=== PATIENT | female | born 2000 | race Caucasian/White ===

== ENCOUNTER 2024-04-06 11:19 | Emergency (ER) | payer BC, OTHER ==
[~2024-04-06] VITALS: Ht 165.1 cm; Wt 63.5 kg
[2024-04-06] MEDS ORDERED: LORAZEPAM 2 MG/1 ML VIAL ONE (11:30)
[2024-04-06] MEDS: LORAZEPAM 2 MG/1 ML VIAL IM ONE (11:36)
[2024-04-06 11:46] LABS: BASOPHILS % (AUTO) 0.5 % (0.0-2.0); CALCIUM 9.2 mg/dL (8.5-10.1); CARBON DIOXIDE 15 mmol/L (21-32); CHLORIDE 102 mmol/L (98-107); CREATININE 0.9 mg/dL (0.6-1.3); EOSINOPHILS # (AUTO) 0.1 K/uL (0.0-0.7); EOSINOPHILS % (AUTO) 1.4 % (0.0-7.0); GLUCOSE 110 mg/dL (74-106); HEMATOCRIT 35.5 % (31.2-41.9); HEMOGLOBIN 11.4 g/dL (10.9-14.3); LYMPHOCYTES # (AUTO) 4.6 K/uL (0.8-4.8); LYMPHOCYTES % (AUTO) 59.5 % (20.5-51.5); MEAN CORPUSCULAR HEMOGLOBIN 27.7 uug (24.7-32.8); MEAN CORPUSCULAR HGB CONC 32 g/dL (32.3-35.6); MEAN CORPUSCULAR VOLUME 86.3 fL (75.5-95.3); MONOCYTES # (AUTO) 0.8 K/uL (0.1-1.30); NEUTROPHILS # (AUTO) 2.2 K/uL (1.8-8.9); NEUTROPHILS % (AUTO) 28.6 % (38.5-71.5); PLATELET COUNT (AUTO) 222 K/uL (179-408); POTASSIUM 3.9 mmol/L (3.5-5.1); RED BLOOD CELL COUNT(AUTO) 4.11 MIL/uL (3.63-4.92); RED CELL DISTRIBUTION WIDTH 16.9 % (12.3-17.7); SODIUM SERUM 139 mmol/L (136-145); UREA NITROGEN, BLOOD 5 mg/dL (7-18); WHITE BLOOD COUNT (AUTO) 7.8 K/uL (3.8-11.8)
[2024-04-06 11:51] LABS: ALANINE AMINOTRANSFERASE 221 U/L (14-59); ALBUMIN 3.5 g/dL (3.4-5.0); ALKALINE PHOSPHATASE 136 U/L (50-136); ASPARTATE AMINOTRANSFERASE 106 U/L (15-37); BILIRUBIN,DIRECT 0.1 mg/dL (0.0-0.2); BILIRUBIN,TOTAL 0.2 mg/dL (0.2-1.0); ETHANOL < 3 MG/DL (0-10); TOTAL PROTEIN, SERUM 7.4 g/dL (6.4-8.2)
[2024-04-06 11:54] LABS: DIFFERENTIAL COMMENT 1
[2024-04-06 12:45] LABS: IRON, SERUM 68 ug/dL (50-175)
[2024-04-06 15:35] LABS: *BILIRUBIN,URIN NEGATIVE (NEGATIVE); *BLOOD, URINE NEGATIVE (NEGATIVE); *CLARITY,URINE CLEAR (CLEAR); *COLOR,URINE YELLOW (YELLOW); *KETONES,URINE NEGATIVE (NEGATIVE); *PROTEIN,URINE NEGATIVE (NEGATIVE); *UROBILINOGEN,URINE 0.2 E.U./dl (NORMAL); LEUKOCYTE ESTERASE ,URINE NEGATIVE (NEGATIVE); NITRITE, URINE NEGATIVE (NEGATIVE); UGLUCOSE NEGATIVE (NEGATIVE)
[2024-04-06 15:52] LABS: *AMPHETAMINE, URINE NEGATIVE (NEGATIVE); *BARBITURATE, URINE NEGATIVE (NEGATIVE); *BENZODIAZEPINE, URINE POSITIVE (NEGATIVE); *CANNABINOID, URINE NEGATIVE (NEGATIVE); *COCCAINE, URINE NEGATIVE (NEGATIVE); *OPIATE, URINE NEGATIVE (NEGATIVE); *PHENCYCLIDINE SCREEN,URINE NEGATIVE (NEGATIVE)
[2024-04-06 16:34] VITALS: BP 135/80; TEMP 98.2; O2SAT 98
[2024-04-06 16:35] LABS: FENTANYL, URINE NEGATIVE (NEGATIVE)
[2024-04-06 17:37] LABS: BASOPHILS % (MANUAL) 0 % (0-2); EOSINOPHILS % (MANUAL) 1 % (0-8); LYMPHOCYTES % (MANUAL) 60 % (20-40); MONOCYTES % (MANUAL) 9 % (2-10); NEUTROPHILS % (MANUAL) 30 % (42-75)
== END 2024-04-06 16:30 | disposition home or self-care (01) ==
LOC: ER 11:19
DX: R00.0 Tachycardia, unspecified (principal); R06.4 Hyperventilation
CPT/HCPCS: 80076; 80048; 81003; 83550; 83735; 85007; 85025; 85379; 85651; 36415; 93005 ×2; 99284; 96372; 83605; 80320; 80307; J2060; J7040; 70030-TC; A4606; A4663; C1758; G0480

== ENCOUNTER 2024-04-20 12:18 | Emergency (ER) | payer BC ==
[~2024-04-20] VITALS: Ht 170.2 cm; Wt 65.8 kg
--- NOTE | 2024-04-20 12:20 | NUR ---
[facility]AN and staff member from her sober living facility, pt to ER [facility] via [facility]. Per report pt had a witnessed seizure lasting about one minute, pt states she has history of seizures, has Keppra prescribed for her but she does not take it.
[2024-04-20 12:48] LABS: BASOPHILS % (AUTO) 0.4 % (0.0-2.0); EOSINOPHILS # (AUTO) 0.1 K/uL (0.0-0.7); EOSINOPHILS % (AUTO) 1.9 % (0.0-7.0); HEMOGLOBIN 11.9 g/dL (10.9-14.3); LYMPHOCYTES # (AUTO) 1.6 K/uL (0.8-4.8); LYMPHOCYTES % (AUTO) 33.9 % (20.5-51.5); MEAN CORPUSCULAR HEMOGLOBIN 28.3 uug (24.7-32.8); MEAN CORPUSCULAR HGB CONC 33 g/dL (32.3-35.6); MEAN CORPUSCULAR VOLUME 85.9 fL (75.5-95.3); MONOCYTES # (AUTO) 0.3 K/uL (0.1-1.30); MONOCYTES % (AUTO) 6.5 % (0.0-11.0); NEUTROPHILS # (AUTO) 2.7 K/uL (1.8-8.9); NEUTROPHILS % (AUTO) 57.3 % (38.5-71.5); PLATELET COUNT (AUTO) 194 K/uL (179-408); RED BLOOD CELL COUNT(AUTO) 4.19 MIL/uL (3.63-4.92); RED CELL DISTRIBUTION WIDTH 16.8 % (12.3-17.7); WHITE BLOOD COUNT (AUTO) 4.7 K/uL (3.8-11.8)
[2024-04-20 12:56] LABS: DIFFERENTIAL COMMENT 1
[2024-04-20 12:58] LABS: AMMONIA 11 umol/L (11-32)
[2024-04-20 12:59] LABS: CALCIUM 9.6 mg/dL (8.5-10.1); CARBON DIOXIDE 31 mmol/L (21-32); CHLORIDE 103 mmol/L (98-107); CREATININE 0.7 mg/dL (0.6-1.3); GLUCOSE 89 mg/dL (74-106); POTASSIUM 3.7 mmol/L (3.5-5.1); SODIUM SERUM 139 mmol/L (136-145); UREA NITROGEN, BLOOD 5 mg/dL (7-18)
[2024-04-20 13:08] LABS: ALANINE AMINOTRANSFERASE 17 U/L (14-59); ALBUMIN 3.5 g/dL (3.4-5.0); ALKALINE PHOSPHATASE 100 U/L (50-136); ASPARTATE AMINOTRANSFERASE 10 U/L (15-37); BILIRUBIN,DIRECT 0.2 mg/dL (0.0-0.2); BILIRUBIN,TOTAL 0.2 mg/dL (0.2-1.0); ETHANOL < 3 MG/DL (0-10); TOTAL PROTEIN, SERUM 7.5 g/dL (6.4-8.2)
[2024-04-20 13:09] LABS: ACETAMINOPHEN < 2.0 ug/mL (10-30)
[2024-04-20 13:11] LABS: *BILIRUBIN,URIN NEGATIVE (NEGATIVE); *BLOOD, URINE NEGATIVE (NEGATIVE); *CLARITY,URINE CLEAR (CLEAR); *COLOR,URINE YELLOW (YELLOW); *KETONES,URINE NEGATIVE (NEGATIVE); *PROTEIN,URINE NEGATIVE (NEGATIVE); *UROBILINOGEN,URINE 0.2 E.U./dl (NORMAL); LEUKOCYTE ESTERASE ,URINE NEGATIVE (NEGATIVE); NITRITE, URINE NEGATIVE (NEGATIVE); UGLUCOSE NEGATIVE (NEGATIVE)
[2024-04-20] MEDS ORDERED: levETIRAcetam 500 MG/5 ML VIAL IV ONE (13:13)
[2024-04-20 13:16] LABS: *URINE HCG, QUAL NEGATIVE (NEGATIVE)
--- NOTE | 2024-04-20 13:18 | NUR ---
KEPPRA 1000MG IVPB INFUSION WAS COMPLETED AT 1311.
[2024-04-20] MEDS: levETIRAcetam IV 1,000 MG in IV DEXTROSE 5% 100 ML IV ONE (13:19)
[2024-04-20 13:24] LABS: *AMPHETAMINE, URINE NEGATIVE (NEGATIVE); *BARBITURATE, URINE NEGATIVE (NEGATIVE); *BENZODIAZEPINE, URINE NEGATIVE (NEGATIVE); *CANNABINOID, URINE NEGATIVE (NEGATIVE); *COCCAINE, URINE NEGATIVE (NEGATIVE); *OPIATE, URINE NEGATIVE (NEGATIVE); *PHENCYCLIDINE SCREEN,URINE NEGATIVE (NEGATIVE); FENTANYL, URINE NEGATIVE (NEGATIVE)
[2024-04-20] MEDS ORDERED: VENL37.510 (16:00)
--- NOTE | 2024-04-20 19:01 | NUR ---
Received report from Hermelindo BETTENCOURT
[2024-04-20] MEDS ORDERED: ACETAMINOPHEN 325 MG TABLET PO PRN (20:45)
[2024-04-20] MEDS ORDERED: LORAZEPAM 2 MG/1 ML VIAL IV PRN (20:45)
[2024-04-20] MEDS ORDERED: TEMAZEPAM 15 MG CAPSULE PO PRN (20:45)
[2024-04-20] MEDS ORDERED: ONDANSETRON 4 MG/2 ML VIAL IV PRN (20:45)
[2024-04-20] MEDS ORDERED: levETIRAcetam 250 MG TABLET PO SCH (21:00)
--- NOTE | 2024-04-20 21:08 | NUR ---
Patient stated she wants to leave and sign AMA. Will contact detox center and Dr. Vega.
--- NOTE | 2024-04-20 21:18 | NUR ---
Spoke with Dr. Vega, informed of patient leaving AMA, doctor stated "okay, that's fine". Called detox center ([phone]) informed them of this, they stated they will call back.
--- NOTE | 2024-04-20 21:47 | NUR ---
Dr. Vega at bedside to evaluate patient.
[2024-04-20] MEDS ORDERED: LEVE250T2 PO (22:08)
--- NOTE | 2024-04-20 22:19 | NUR ---
Patient is medically cleared by Dr. Vega.
--- NOTE | 2024-04-20 22:23 | NUR ---
Called detox center informed of medical clearance by Dr. Vega. They will set up transport of patient, will call when on the way.
--- NOTE | 2024-04-20 22:45 | NUR ---
Patient does not wish to proceed with medical care recommended by Dr. Osborne. Patient given information related to possible complications, up to and including , which could occur as a result of leaving the hospital at this time. Patient verbalizes understanding of risks involved due to leaving against medical advice. Patient has signed AMA form.
--- NOTE | 2024-04-20 22:48 | NUR ---
Patient discharged to home in stable condition. Written and verbal after care instructions given. Patient verbalizes understanding of instructions. Stressed follow up or return to ER for worsening s/s. Patient is A/Ox4, able to ambulate with steady gait.
[2024-04-20 22:50] VITALS: BP 119/59; TEMP 98.6; O2SAT 99
== END 2024-04-20 22:50 | disposition left against medical advice (07) ==
LOC: ER 12:18
DX: F19.10 Other psychoactive substance abuse, uncomplicated (principal); R55 Syncope and collapse; R10.2 Pelvic and perineal pain; G40.909 Epilepsy, unspecified, not intractable, without status epilepticus; Z79.899 Other long term (current) drug therapy; Z88.0 Allergy status to penicillin
CPT/HCPCS: 80076; 80048; 81003; 82140; 84703; 85025; 85730; 84484; 36415; 93005; 71045; 70450; 72125; 99291; 96365; 80299; 80320; 80307; J1953 ×2; G0480